=== PATIENT | male | born 1965 | race Caucasian/White ===

== ENCOUNTER 2019-10-08 11:09 | Day surgery (SDC) | payer OTHER ==
[~2019-10-08] VITALS: Ht 167.6 cm; Wt 68.2 kg
[~2019-10-08 11:09] MED LIST: ABAC1TAB15 PO
[2019-10-08] MEDS ORDERED: PROPOFOL 1% 20 ML VIAL IVP ONE (11:10)
[2019-10-08] MEDS ORDERED: LIDOCAINE/PF 2% 5 ML VIAL IM ONE (11:10)
[2019-10-09] MEDS ORDERED: SODIUM CHLORIDE 0.9% 1,000 ML IV ONE (10:30)
== END 2019-10-08 16:15 | disposition home or self-care (01) ==
LOC: SURGERY 11:09
PROVIDERS: ATTEND Internal Medicine Gastroenterology
DX: Z12.11 Encounter for screening for malignant neoplasm of colon (principal); R13.10 Dysphagia, unspecified; K44.9 Diaphragmatic hernia without obstruction or gangrene; Z11.59 Encounter for screening for other viral diseases; Z72.89 Other problems related to lifestyle; K21.9 Gastro-esophageal reflux disease without esophagitis; B20 Human immunodeficiency virus [HIV] disease
CPT/HCPCS: 45378; 43239; 87635; 88305; C1769; J2704; J3490